=== PATIENT | male | born 2000 | race Caucasian/White ===

== ENCOUNTER 2018-10-13 16:07 | Emergency (ER) | payer OTHER ==
[~2018-10-13] VITALS: Ht 185.4 cm; Wt 72.6 kg
[2018-10-13] MEDS ORDERED: IBUPROFEN 800800 M1 PO (17:44)
[2018-10-13 18:00] VITALS: BP 112/64
== END 2018-10-13 18:00 | disposition home or self-care (01) ==
LOC: M.ERS 16:07
DX: S90.31XA Contusion of right foot, initial encounter (principal); Z88.0 Allergy status to penicillin; W13.2XXA Fall from, out of or through roof, initial encounter; Y93.89 Activity, other specified; Y92.89 Other specified places as the place of occurrence of the external cause; Y99.8 Other external cause status